=== PATIENT | female | born 1950 ===

== ENCOUNTER 2017-06-21 18:10 | Observation (INO) | payer MEDICARE, MEDICAID ==
[2017-06-21 18:10] VITALS: BMI 31.9
[2017-06-21 18:21] VITALS: TEMP 97.5
--- NOTE | 2017-06-21 18:54 | ED PDOC ---
HPI: Chest Pain Time Seen by Provider: 06/21/17 18:22 Chief Complaint (Nursing): Chest Pain Chief Complaint (Provider): Chest Pain History Per: Patient History/Exam Limitations: no limitations Onset/Duration Of Symptoms: Days (x3), Intermittent Episodes Associated Symptoms: Diaphoresis, Other (Shortness of Breath) Additional Complaint(s): Magaly Mccarty is a 67 year old female, with a past medical history of hypertension and hypercholesterolemia, who presents to the emergency department complaining of chest pain radiating to her left shoulder and arm associated with episodes of sweating, shortness of breath, and bilateral lower leg swelling onset for 3 days. She denies any fever, cough, and lightheadedness. Patient reports there is no air conditioner at home but uses 2 fans and lives on the 1st floor, yet she doesn't feel hot. PMD: Reilly Barney Past Medical History Reviewed: Historical Data, Nursing Documentation, Vital Signs Vital Signs: Last Vital Signs Temp 97.5 F L 06/21/17 18:17 Pulse 65 06/21/17 20:17 Resp 18 06/21/17 18:17 BP 122/76 06/21/17 18:17 Pulse Ox 99 06/21/17 19:27 - Medical History PMH: Anxiety, Arthritis, Asthma, COPD, Depression, Gastritis, HTN, Hypercholesterolemia, Sleep Apnea Denies: HIV, Chronic Kidney Disease - Surgical History Surgical History: Cholecystectomy, Hernia Repair Other surgeries: hysterectomy. 4 left eye surgeries for glaucoma - Family History Family History: States: Unknown Family Hx - Social History Current smoker - smoking cessation education provided: No (>10yrs) Alcohol: None Drugs: Denies - Home Medications Home Medications: Ambulatory Orders Medication Instructions Recorded Albuterol HFA [Ventolin HFA 90 2 puff INH Q6 PRN 08/14/16 mcg/actuation (8 g)] Diclofenac Sodium [Voltaren] 50 mg PO Q8 PRN 08/14/16 Fluticasone/Salmeterol 250/50 2 puff INH BID 08/14/16 [Advair Diskus 250/50] Omeprazole 20 mg PO DAILY 08/14/16 Sertraline [Zoloft] 50 mg PO DAILY 08/14/16 Simvastatin 20 mg PO DAILY 08/14/16 hydroCHLOROthiazide [Hydrodiuril] 25 mg PO DAILY 08/14/16 - Allergies Allergies/Adverse Reactions: Allergies Allergy/AdvReac Type Severity Reaction Status Date / Time No Known Allergies Allergy Verified 10/18/14 14:53 Review of Systems ROS Statement: Except As Marked, All Systems Reviewed And Found Negative Constitutional: Positive for: Sweats. Negative for: Fever Cardiovascular: Positive for: Chest Pain (intermittent bilateral, radiating to left shoulder and arm), Other (bilateral lower leg swelling ). Negative for: Light Headedness Respiratory: Positive for: Shortness of Breath. Negative for: Cough Physical Exam - Reviewed Nursing Documentation Reviewed: Yes Vital Signs Reviewed: Yes - Physical Exam Appears: Positive for: Non-toxic, In Acute Distress Head Exam: Positive for: ATRAUMATIC, NORMOCEPHALIC Skin: Positive for: Warm, Dry Eye Exam: Positive for: EOMI, PERRL ENT: Negative for: Pharyngeal Erythema, Tonsillar Exudate Neck: Positive for: Painless ROM, Supple Cardiovascular/Chest: Positive for: Regular Rate, Rhythm, Chest Non Tender, Edema (trace bilateral lower leg). Negative for: Murmur Respiratory: Positive for: Normal Breath Sounds. Negative for: Accessory Muscle Use, Wheezing, Respiratory Distress Gastrointestinal/Abdominal: Positive for: Soft. Negative for: Tenderness Back: Positive for: Normal Inspection. Negative for: Vertebral Tenderness Extremity: Positive for: Normal ROM. Negative for: Calf Tenderness, Deformity Lymphatic: Negative for: Adenopathy Neurologic/Psych: Positive for: Alert, Motor/Sensory Deficits - Laboratory Results Result Diagrams: 06/21/17 19:56 06/21/17 19:56 - ECG ECG: Positive for: Interpreted By Me ECG Rhythm: Positive for: Normal QRS, Normal ST Segment, Sinus Rhythm O2 Sat by Pulse Oximetry: 99 Pulse Ox Interpretation: Normal - Radiology X-Ray: Read By Radiologist X-Ray Interpretation: No Acute Disease - Progress ED Course And Treament: Accession No. : [id number] Patient Name / ID : YAEL JESUS / [id number] Exam Date : 06/21/2017 18:36:35 ( Approved ) Study Comment : Sex / Age : F / 67Y Creator : Reynaldo Leija MD Dictator : Reynaldo Leija MD Chronograph Operator : Tub Rider : Reynaldo Leija MD Approver2 : Report Date : 06/21/2017 18:52:00 My Comment : HISTORY: chest pain COMPARISON: 07/15/2016 TECHNIQUE: Chest PA and lateral FINDINGS: LUNGS: Hyperinflation, manifestations of COPD. No active pulmonary disease. PLEURA: No significant pleural effusion identified. No pneumothorax apparent. CARDIOVASCULAR: No radiographic findings to suggest acute or significant cardiovascular disease. OSSEOUS STRUCTURES: No significant abnormalities. VISUALIZED UPPER ABDOMEN: Normal. OTHER FINDINGS: None. IMPRESSION: No active disease. No significant interval change compared to the prior examination(s). Medical Decision Making Medical Decision Making: Initial Impression: Chest Pain differential include but not limited to acute coronary syndrome, angina, CHF, PE, dehydration Initial Plan: --Type and Screen --EKG --B-type Natriuretic --Comp Metabolic Panel --Troponin I --Urine Dipstick --EKG --CBC w/ differential --D-dimer [Coag] --PTT --PT --Chest two views (PA/LAT) [RAD] --reevaluation Patient will be hospitalized pending ED workup to rule out ACS Time: 19:15 FINDINGS: LUNGS: Hyperinflation, manifestations of COPD. No active pulmonary disease. PLEURA: No significant pleural effusion identified. No pneumothorax apparent. CARDIOVASCULAR: No radiographic findings to suggest acute or significant cardiovascular disease. OSSEOUS STRUCTURES: No significant abnormalities. VISUALIZED UPPER ABDOMEN: Normal. OTHER FINDINGS: None. IMPRESSION: No active disease. No significant interval change compared to the prior examination(s). Labs unremarkable. Scribe Attestation: Documented by Ben Edmond, acting as a scribe for Marjorie Schuler MD. Provider Scribe Attestation: All medical record entries made by the Scribe were at my direction and personally dictated by me. I have reviewed the chart and agree that the record accurately reflects my personal performance of the history, physical exam, medical decision making, and the department course for this patient. I have also personally directed, reviewed, and agree with the discharge instructions and disposition. Disposition - Clinical Impression Clinical Impression: Chest pain Discussed With : Josh Lozada Doctor Will See Patient In The: ED Counseled Patient/Family Regarding: Studies Performed, Diagnosis - Disposition Disposition Time: 20:00 Condition: SERIOUS Forms: [facility] (Hebrew) - Pt Status Changed To: Hospital Disposition Of: Observation - POA Present On Arrival: None
[2017-06-21 20:04] LABS: BASO # 0.1 K/uL (0.0-0.2); BASO % 0.9 % (0.0-2.0); EOS # 0.2 K/uL (0.0-0.7); EOS % 2.2 % (0.0-4.0); HEMATOCRIT 43.3 % (34.0-47.0); LYMPH # 1.1 K/uL (1.0-4.3); LYMPH % 14.8 % (20.0-40.0); MEAN CELL VOLUME 95.2 fl (81.0-99.0); MEAN CORPUSCULAR HGB CONC 32.6 g/dL (33.0-37.0); MEAN PLATELET VOLUME 9.2 fl (7.2-11.7); MONO # 0.6 K/uL (0.0-0.8); MONO % 8.4 % (0.0-10.0); NEUT # 5.4 K/uL (1.8-7.0); NEUT % 73.7 % (50.0-75.0); RED CELL DISTRIBUTION WIDTH 14.3 % (11.5-14.5); WHITE BLOOD COUNT 7.4 K/uL (4.8-10.8)
[2017-06-21 20:22] LABS: PARTIAL THROMBOPLASTIN TIME 31.8 Seconds (25.6-37.1)
[2017-06-21 20:25] LABS: ALB/GLOB RATIO 1.5 (1.0-2.1); BILIRUBIN,TOTAL 1.1 mg/dl (0.2-1.3); CALCIUM 9.5 mg/dL (8.4-10.2); TOTAL PROTEIN 7.6 G/DL (6.3-8.2)
[2017-06-21 20:36] LABS: TROPONIN I 0.017 ng/mL (0.00-0.120)
[2017-06-21 20:38] LABS: POTASSIUM 4.1 MMOL/L (3.6-5.0)
--- NOTE | 2017-06-21 22:11 | CP.PCM.HP ---
History of Present Illness - History of Present Illness History of Present Illness: 67 y/o F with PMH including HTN, HLD, Mild persistent asthma, Depression and Anxiety presents to ED with a 3 day history of chest pain. Patient reports pain is retrosternal, radiating into the left upper extremity. Pain was gradual in onset, "squeezing" and "cramping" in nature, constant and ranging from 3-6/10 intensity. She reports associated diaphoresis and "nervous" feeling. Pain has been aggravated by movement and not aggravated by deep inspiration or exertion. No alleviating factors are noted. Patient denies fevers, chills, sob, wheezing, cough, abdominal pain, nausea, vomiting or recent social stressors. As per her baseline, patient is able to walk 10-12 blocks without exertional chest pain or dyspnea. She has occasional exercised induced asthma for which she uses ventolin as needed. She is a former 45 year smoker but quit 10 years ago. PMD: Dr Maciel, [facility] Present on Admission - Present on Admission Any Indicators Present on Admission: No History of DVT/PE: No History of Uncontrolled Diabetes: No Urinary Catheter: No Decubitus Ulcer Present: No Review of Systems - Constitutional Constitutional: Weight Loss. absent: Chills, Fever - Cardiovascular Cardiovascular: Chest Pain. absent: Dyspnea on Exertion, Palpitations, Pedal Edema - Respiratory Respiratory: absent: Cough, Wheezing - Gastrointestinal Gastrointestinal: absent: Abdominal Pain, Diarrhea, Nausea, Vomiting - Psychiatric Psychiatric: absent: Anxiety, Depression, Homicidal Ideation Past Patient History - Past Medical History & Family History Past Medical History?: Yes - Past Social History Smoking Status: Former Smoker (45 year smoking history. Quit 10 years ago.) Alcohol: None Drugs: Denies Home Situation {Lives}: Alone - CARDIAC Hx Hypercholesterolemia: Yes Hx Hypertension: Yes - PULMONARY Hx Asthma: Yes Hx Chronic Obstructive Pulmonary Disease (COPD): Yes Hx Sleep Apnea: Yes - NEUROLOGICAL Hx Neurological Disorder: No - HEENT Hx HEENT Problems: No - ENDOCRINE/METABOLIC Hx Endocrine Disorders: No - HEMATOLOGICAL/ONCOLOGICAL Hx Human Immunodeficiency Virus (HIV): No - INTEGUMENTARY Hx Dermatological Problems: No - MUSCULOSKELETAL/RHEUMATOLOGICAL Hx Arthritis: Yes - GASTROINTESTINAL Hx Gastritis: Yes - GENITOURINARY/GYNECOLOGICAL Hx Genitourinary Disorders: No - PSYCHIATRIC Hx Anxiety: Yes Hx Depression: Yes - SURGICAL HISTORY Hx Cholecystectomy: Yes - ANESTHESIA Hx Anesthesia: Yes Hx Anesthesia Reactions: No Hx Malignant Hyperthermia: No Meds Allergies/Adverse Reactions: Allergies Allergy/AdvReac Type Severity Reaction Status Date / Time No Known Allergies Allergy Verified 10/18/14 14:53 Physical Exam - Constitutional Appears: Non-toxic, No Acute Distress - Head Exam Head Exam: ATRAUMATIC, NORMAL INSPECTION, NORMOCEPHALIC - Eye Exam Eye Exam: EOMI Additional comments: Right pupil reactive to light. Blind in left eye. Left eye pupil fixed s/p ophthalmologic surgery for glaucoma. - ENT Exam ENT Exam: Mucous Membranes Moist - Neck Exam Neck exam: Negative for: Tenderness, Thyromegaly - Respiratory Exam Respiratory Exam: Clear to Auscultation Bilateral, NORMAL BREATHING PATTERN. absent: Rhonchi, Wheezes, Respiratory Distress - Cardiovascular Exam Cardiovascular Exam: REGULAR RHYTHM, RRR, +S1, +S2. absent: Systolic Murmur - GI/Abdominal Exam GI & Abdominal Exam: Normal Bowel Sounds, Soft. absent: Distended, Guarding, Rebound, Tenderness - Extremities Exam Extremities exam: Positive for: normal capillary refill. Negative for: calf tenderness, pedal edema - Neurological Exam Neurological exam: Alert, Oriented x3 - Psychiatric Exam Psychiatric exam: Normal Affect, Normal Mood Additional comments: Denies depressed mood or anxiety currently. - Skin Skin Exam: Dry, Normal Color, Warm Additional comments: No diaphoresis. Results - Vital Signs Recent Vital Signs: Last Vital Signs Temp 97.5 F L 06/21/17 18:17 Pulse 65 06/21/17 20:17 Resp 18 06/21/17 18:17 BP 122/76 06/21/17 18:17 Pulse Ox 99 06/21/17 20:54 - Labs Result Diagrams: 06/21/17 19:56 06/21/17 19:56 Assessment & Plan - Assessment and Plan (Free Text) Assessment: 67 y/o F with PMH including HTN, HLD, Mild persistent asthma, Depression and Anxiety presented to ED with a 3 day history of retrosternal chest pain. Patient admitted for observation to rule out ACS. Plan: Acute chest pain -In the context of HTN, HLD, Obesity and new onset chest pain, will need to R/O ACS -EKG performed in ED does not detect any acute ischemic changes -Troponin negative x1. Follow serial troponins -ProBNP wnl at 109 -CXR does not detect any acute pulmonary processes -TSH ordered -ASA administered in ED -O2 via NC prn -Admit to telemetry for cardiac monitoring -EKG in AM Hypertension -Well controlled -Continue HCT 25mg PO daily Hyperlipidemia -Last lipid panel from 08/14/16: Total chol: 143, LDL: 71, HDL: 41 -Will repeat lipid panel -Continue simvastatin 20mg PO QHS Mild persistent asthma -Well controlled, no acute exacerbation -Continue advair 250/50 INH BID -Singulair 10mg PO daily -Albuterol PRN Depression/Anxiety -Well controlled -Patient denies any current depressed mood -Continue Sertraline 50mg PO daily Obesity -BMI 32.9 DVT Prophylaxis -Lovenox 40mg SC daily
[2017-06-21] MEDS ORDERED: Albuterol HFA 90 mcg/actuation (8 g) INH PRN (22:29)
[2017-06-21 23:47] VITALS: RESP 16; O2SAT 97
[2017-06-22 06:39] VITALS: BP 115/78; PULSE 74
[2017-06-22 06:58] LABS: THYROID STIMULATING HORMONE 1.37 mIU/ML (0.46-4.68)
[2017-06-22] MEDS ORDERED: Enoxaparin 40 mg Syringe SC SCH (09:00)
[2017-06-22] MEDS ORDERED: Fluticasone-Salmeterol 250-50mcg Diskus INH SCH (09:00)
--- NOTE | 2017-06-22 15:51 | CP.PCM.DIS ---
Provider - Provider Date of Admission: 06/21/17 20:45 Attending physician: Heydi Adams MD Time Spent in preparation of Discharge (in minutes): 30 Diagnosis - Discharge Diagnosis (1) Chest pain Status: Resolved Hospital Course - Lab Results Lab Results: Most Recent Lab Values WBC 7.4 K/uL (4.8-10.8) 06/21/17 19:56 RBC 4.55 Mil/uL (3.80-5.20) 06/21/17 19:56 Hgb 14.1 g/dL (12.0-16.0) 06/21/17 19:56 Hct 43.3 % (34.0-47.0) 06/21/17 19:56 MCV 95.2 fl (81.0-99.0) 06/21/17 19:56 MCH 31.0 pg (27.0-31.0) 06/21/17 19:56 MCHC 32.6 g/dL (33.0-37.0) L 06/21/17 19:56 RDW 14.3 % (11.5-14.5) 06/21/17 19:56 Plt Count 339 K/uL (130-400) 06/21/17 19:56 MPV 9.2 fl (7.2-11.7) 06/21/17 19:56 Neut % (Auto) 73.7 % (50.0-75.0) 06/21/17 19:56 Lymph % (Auto) 14.8 % (20.0-40.0) L 06/21/17 19:56 Dickens % (Auto) 8.4 % (0.0-10.0) 06/21/17 19:56 Eos % (Auto) 2.2 % (0.0-4.0) 06/21/17 19:56 Baso % (Auto) 0.9 % (0.0-2.0) 06/21/17 19:56 Neut # 5.4 K/uL (1.8-7.0) 06/21/17 19:56 Lymph # 1.1 K/uL (1.0-4.3) 06/21/17 19:56 Dickens # 0.6 K/uL (0.0-0.8) 06/21/17 19:56 Eos # 0.2 K/uL (0.0-0.7) 06/21/17 19:56 Baso # 0.1 K/uL (0.0-0.2) 06/21/17 19:56 PT 12.9 Seconds (9.8-13.1) 06/21/17 19:56 INR 1.3 (0.9-1.2) H 06/21/17 19:56 APTT 31.8 Seconds (25.6-37.1) 06/21/17 19:56 D-Dimer, Quantitative 139 ng/mlDDU (0-230) 06/21/17 19:56 Sodium 140 mmol/l (132-148) 06/21/17 19:56 Potassium 4.1 MMOL/L (3.6-5.0) 06/21/17 19:56 Chloride 102 mmol/L (98-107) 06/21/17 19:56 Carbon Dioxide 27 mmol/L (22-30) 06/21/17 19:56 Anion Gap 15 (10-20) 06/21/17 19:56 BUN 25 mg/dl (7-17) H 06/21/17 19:56 Creatinine 1.1 mg/dL (0.7-1.2) 06/21/17 19:56 Est GFR ( Amer) 60 06/21/17 19:56 Est GFR (Non-Af Amer) 49 06/21/17 19:56 Random Glucose 117 mg/dL (65-105) H 06/21/17 19:56 Calcium 9.5 mg/dL (8.4-10.2) 06/21/17 19:56 Total Bilirubin 1.1 mg/dl (0.2-1.3) 06/21/17 19:56 AST 49 U/L (14-36) H 06/21/17 19:56 ALT 41 U/L (9-52) 06/21/17 19:56 Alkaline Phosphatase 97 U/L (38-126) 06/21/17 19:56 Troponin I < 0.0120 ng/mL (0.00-0.120) 06/22/17 06:00 NT-Pro-B Natriuret Pep 109 pg/ml (0-900) 06/21/17 19:56 Total Protein 7.6 G/DL (6.3-8.2) 06/21/17 19:56 Albumin 4.6 g/dL (3.5-5.0) 06/21/17 19:56 Globulin 3.0 gm/dL (2.2-3.9) 06/21/17 19:56 Albumin/Globulin Ratio 1.5 (1.0-2.1) 06/21/17 19:56 Triglycerides 106 mg/DL (0-149) D 06/22/17 06:10 Cholesterol 142 mg/dL (0-199) 06/22/17 06:10 LDL Cholesterol Direct 84 mg/dL (0-129) 06/22/17 06:10 HDL Cholesterol 36 MG/DL (30-70) 06/22/17 06:10 TSH 3rd Generation 1.37 mIU/ML (0.46-4.68) 06/22/17 06:10 Blood Type A POSITIVE 06/21/17 19:50 Antibody Screen Negative 06/21/17 19:50 BBK History Checked No verified bt 06/21/17 19:50 - Hospital Course Hospital Course: Discharge Diagnoses: Chest Pain Consultations: None Procedures: None Complications: None Hospital Course: Pt is 67 yo female with Hx of HTN, HLD, Moderate persistent asthma, Depression, and DVT who was admitted for chest pain associated with anxiety, diaphoresis, and palpatations. Patient states that she has been experiencing this episodes for the past year. Her CP resolved shortly after arriving to the ED. EKG, Serial Troponins, TSH was negative. On d/c patient did not have any complaints. Medication at discharge: Albuterol (Ventolin Hfa 90mcg/Actuation (8g) Atorvastatin 10mg HTZ 25mg Montelukast 10mg Fluticasone/ Salmeterol BID Sertraline 100mg Aspirin 81mg Diclofenac 50mg Omeprazole 20 mg Discharge plan: Condition upon discharge: Stable Activity: Ambulating without assistance Diet:Regular Date of Next Appt: July 09 at [facility], pt is aware Issues to be addressed at follow up: Possible Stress Test, Anxiety/ Depression Management Discharge Exam - Head Exam Head Exam: ATRAUMATIC, NORMAL INSPECTION, NORMOCEPHALIC - Eye Exam Eye Exam: Normal appearance - Respiratory Exam Respiratory Exam: Clear to PA & Lateral. absent: Rales, Respiratory Distress, Stridor - Cardiovascular Exam Cardiovascular Exam: REGULAR RHYTHM, +S1, +S2. absent: Systolic Murmur - Neurological Exam Neurological exam: Alert, Altered, Oriented x3 Discharge Plan - Discharge Medications Prescriptions: Sertraline HCl 100 mg PO DAILY #30 tablet - Follow Up Plan Condition: STABLE Disposition: HOME/ ROUTINE
--- NOTE | 2017-06-22 17:41 | CARD ---
APPROVED REPORT EKG Measurement Heart [id number] <Conclusion> Sinus rhythm with 1st degree AV block Otherwise normal ECG
--- NOTE | 2017-06-22 17:45 | CARD ---
APPROVED REPORT EKG Measurement Heart [id number] <Conclusion> Normal sinus rhythm Normal ECG
== END 2017-06-22 14:10 | disposition home or self-care (01) ==
LOC: H.ER 18:10 → H.ERHOLD 20:45
PROVIDERS: ADMIT Family Medicine Geriatric Medicine; ATTEND Family Medicine Geriatric Medicine
DX: R07.9 Chest pain, unspecified (principal); E78.00 Pure hypercholesterolemia, unspecified; E78.5 Hyperlipidemia, unspecified; G47.30 Sleep apnea, unspecified; I10 Essential (primary) hypertension; J44.9 Chronic obstructive pulmonary disease, unspecified; J45.40 Moderate persistent asthma, uncomplicated; Z87.891 Personal history of nicotine dependence; Z90.49 Acquired absence of other specified parts of digestive tract; F32.9 Major depressive disorder, single episode, unspecified; F41.9 Anxiety disorder, unspecified; K29.70 Gastritis, unspecified, without bleeding; M19.90 Unspecified osteoarthritis, unspecified site; R61 Generalized hyperhidrosis
CPT/HCPCS: 71020; 80053; 80061; 83880; 84443; 84484; 85025; 85378; 85610; 85730; 86850; 86900; 93005; 96372; 99284; G0378; J1650

== ENCOUNTER 2019-02-25 11:41 | Emergency (ER) | payer MEDICARE, MEDICAID ==
[2019-02-25 11:49] VITALS: TEMP 97.7
[2019-02-25 11:50] VITALS: BMI 37.8
--- NOTE | 2019-02-25 12:18 | ED PDOC ---
HPI: Headache Time Seen by Provider: 02/25/19 11:52 Chief Complaint (Nursing): Headache Chief Complaint (Provider): Headache History Per: Patient, Director Medical Economics (Lacie Baez # [id number]) History/Exam Limitations: language barrier Onset/Duration Of Symptoms: Days (x3) Current Symptoms Are (Timing): Still Present Additional Complaint(s): Patient is a 68 y/o female with an extensive PMHx who presents to the ED for evaluation of a headache for the past three days. Patient claims the pain radiates down the left-side of her neck to her left shoulder, down her left arm and left leg. Patient also reports chest pain which she describes as "like a cramp." Patient states she has been taking Tylenol with minimal relief. Patient denies shortness of breath, weakness, numbness, and radiation down to her fingertips. Of note, patient has been staying up to date with her medication including Timilol, Zylox, and Aspirin. PCP: Dr. Reilly Barney NIHSS Stroke Scale - Date/Time Evaluation Performed Date Performed: 02/25/19 Time Performed: 12:10 When Was NIHSS Performed: Baseline - How Severe is the Stroke Level of Consciousness: 0=Alert LOC to Questions: 0=Both comments correct LOC to commands: 0=Obeys both correctly Best Gaze: 0=Normal Visual: 0=No visual loss Facial: 0=Normal Motor Arm - Left: 0=No drift Motor Arm - Right: 0=No drift Motor Leg - Left: 0=No drift Motor Leg - Right: 0=No drift Limb Ataxia: 0=Absent Sensory: 0=Normal Best Language: 0=No aphasia Dysarthia: 0=Normal articulation Extinction & Inattention (Neglect): 0=Normal, no object Score: 0 Past Medical History Reviewed: Historical Data, Nursing Documentation, Vital Signs Vital Signs: Last Vital Signs Temp 97.7 F 02/25/19 11:49 Pulse 61 02/25/19 11:49 Resp 18 02/25/19 11:49 BP 164/97 H 02/25/19 11:49 Pulse Ox 97 02/25/19 11:49 - Medical History PMH: Anxiety, Arthritis, Asthma, COPD, Depression, Gastritis, HTN, Hypercholesterolemia, Sleep Apnea Denies: HIV, Chronic Kidney Disease - Surgical History Surgical History: Cholecystectomy, Hernia Repair - Family History Family History: States: Unknown Family Hx - Home Medications Home Medications: Ambulatory Orders Medication Instructions Recorded Albuterol HFA [Ventolin HFA 90 2 puff INH Q6 PRN 08/14/16 mcg/actuation (8 g)] Diclofenac Sodium [Voltaren] 50 mg PO Q8 PRN 08/14/16 Fluticasone/Salmeterol 250/50 2 puff INH BID 08/14/16 [Advair Diskus 250/50] Omeprazole 20 mg PO DAILY 08/14/16 Simvastatin 20 mg PO HS 08/14/16 hydroCHLOROthiazide [Hydrodiuril] 25 mg PO DAILY 08/14/16 Montelukast [Singulair] 10 mg PO HS 06/21/17 Sertraline HCl 100 mg PO DAILY #30 tablet 06/22/17 Ibuprofen [Motrin] 600 mg PO TID 7 Days tab 02/25/19 - Allergies Allergies/Adverse Reactions: Allergies Allergy/AdvReac Type Severity Reaction Status Date / Time No Known Allergies Allergy Verified 10/18/14 14:53 Review of Systems ROS Statement: Except As Marked, All Systems Reviewed And Found Negative Cardiovascular: Positive for: Chest Pain Respiratory: Negative for: Shortness of Breath Musculoskeletal: Positive for: Neck Pain (left-sided), Shoulder Pain (left), Arm Pain (left; without raidation to fingertips), Leg Pain (left) Neurological: Positive for: Headache. Negative for: Weakness, Numbness Physical Exam - Reviewed Nursing Documentation Reviewed: Yes Vital Signs Reviewed: Yes - Physical Exam Appears: Positive for: No Acute Distress Head Exam: Positive for: ATRAUMATIC, NORMAL INSPECTION, NORMOCEPHALIC Skin: Positive for: Normal Color, Warm, DRY Eye Exam: Positive for: EOMI, Normal appearance, PERRL ENT: Positive for: Normal ENT Inspection Neck: Positive for: Normal (with tenderness to left-side), Painless ROM, Supple Cardiovascular/Chest: Positive for: Regular Rate, Rhythm. Negative for: Murmur Respiratory: Positive for: Normal Breath Sounds. Negative for: Respiratory Distress Back: Positive for: Normal Inspection. 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 Negative for: Pedal Edema, Deformity Neurological/Psych: Positive for: Alert, Oriented (x3), Gait (steady), Other (sensation to touch intact) - Laboratory Results Result Diagrams: 02/25/19 13:30 02/25/19 13:30 - ECG O2 Sat by Pulse Oximetry: 97 (RA) Pulse Ox Interpretation: Normal Medical Decision Making Medical Decision Making: Time: 1209 Impression: Headache and Left Sided Pain Plan: CT Head w/o Contrast EKG CMP Troponin I Urine Dipstick CBC PTT Prothrombin Time CXR UA Time: 1305 CT Head FINDINGS: HEMORRHAGE: No intracranial hemorrhage. BRAIN: Good corticomedullary differentiation is seen. There is minimal periventricular white matter lucency compatible with diffuse cerebral atrophy and chronic mi croangiopathy. No suspicious extra-axial fluid collection is identified and the midline brain anatomy appears grossly nonfocal as imaged. There is no mass effect throughout. VENTRICLES: Unremarkable. No hydrocephalus. CALVARIUM: Unremarkable. PARANASAL SINUSES: Unremarkable as visualized. No significant inflammatory changes. MASTOID AIR CELLS: Unremarkable as visualized. No inflammatory changes. 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 IMPRESSION: Stable minimal age related neuro degenerative changes comprised of only minimal chronic microangiopathy. Exam otherwise unremarkable throughout the intracranial space. Incidental interval left ophthalmological postoperative changes identified. Scribe Attestation: Documented by Td Casey, acting as a scribe Rigo Ronquillo MD. Provider Scribe Attestation: All medical record entries made by the Scribe were at my direction and personally dictated by me. I have reviewed the chart and agree that the record accurately reflects my personal performance of the history, physical exam, medical decision making, and the department course for this patient. I have also personally directed, reviewed, and agree with the discharge instructions and disposition. Disposition - Clinical Impression Clinical Impression: Lung nodules, Aortic aneurysm, Pain - Disposition Referrals: [facility] [Outside] - 02/26/19 Chet Garay [Medical Doctor] - 02/26/19 Disposition: Transfer of Care Disposition Time: 15:00 Condition: STABLE Additional Instructions: Return if not better in 3 days. See the primary care doctor without fail for evaluation of your aortic aneurysm and lung nodules. Prescriptions: Ibuprofen [Motrin] 600 mg PO TID 7 Days tab Instructions: Thoracic Aortic Aneurysm, Acute Pain, Adult, Multiple Pulmonary Nodules Forms: [employer] (Armenian) Print Language: ROMANSH Patient Signed Over To: Darion Pop
--- NOTE | 2019-02-25 13:08 | CT ---
Date of service: 02/25/2019 PROCEDURE: CT HEAD WITHOUT CONTRAST. HISTORY: L sided PAZ COMPARISON: Unenhanced head CT 08/13/2016. TECHNIQUE: Axial computed tomography images were obtained through the head/brain without intravenous contrast. Radiation dose: Total exam DLP = 798.89 mGy-cm. This CT exam was performed using one or more of the following dose reduction techniques: Automated exposure control, adjustment of the mA and/or kV according to patient size, and/or use of iterative reconstruction technique. FINDINGS: HEMORRHAGE: No intracranial hemorrhage. BRAIN: Good corticomedullary differentiation is seen. There is minimal periventricular white matter lucency compatible with diffuse cerebral atrophy and chronic microangiopathy. No suspicious extra-axial fluid collection is identified and the midline brain anatomy appears grossly nonfocal as imaged. There is no mass effect throughout. VENTRICLES: Unremarkable. No hydrocephalus. CALVARIUM: Unremarkable. PARANASAL SINUSES: Unremarkable as visualized. No significant inflammatory changes. MASTOID AIR CELLS: Unremarkable as visualized. No inflammatory changes. OTHER FINDINGS: Incidental interval left scleral medical records secretary in situ as well as additional device presumed cephalad to the lens in this patient who is status post prior cataract surgery. IMPRESSION: Stable minimal age related neuro degenerative changes comprised of only minimal chronic microangiopathy. Exam otherwise unremarkable throughout the intracranial space. Incidental interval left ophthalmological postoperative changes identified.
[2019-02-25 13:29] VITALS: RESP 16
[2019-02-25 13:32] LABS: EOS # 0.1 K/uL (0.0-0.7); EOS % 2.9 % (0.0-4.0); HEMOGLOBIN 14.3 g/dL (12.0-16.0); LYMPH # 1.3 K/uL (1.0-4.3); MEAN PLATELET VOLUME 9.6 fl (7.2-11.7); MONO # 0.4 K/uL (0.0-0.8); NEUT # 2.7 K/uL (1.8-7.0); NEUT % 59.1 % (50.0-75.0); RBC 4.48 Mil/uL (3.80-5.20); RED CELL DISTRIBUTION WIDTH 14.4 % (11.5-14.5); WHITE BLOOD COUNT 4.5 K/uL (4.8-10.8)
[2019-02-25 13:37] LABS: INR 1.1; PROTHROMBIN TIME 12.8 Seconds (9.8-13.1)
[2019-02-25 13:40] LABS: PARTIAL THROMBOPLASTIN TIME 36.3 Seconds (25.6-37.1)
[2019-02-25 13:41] LABS: BLOOD UREA NITROGEN 15 mg/dl (7-17); CALCIUM 9.3 mg/dL (8.4-10.2); GFR NON-AFRICAN AMERICAN > 60
[2019-02-25 13:43] LABS: ALB/GLOB RATIO 1.2 (1.0-2.1); ALBUMIN 4.5 g/dL (3.5-5.0); ALT/SGPT 45 U/L (9-52); AST/SGOT 87 U/L (14-36)
[2019-02-25 13:47] LABS: SQUAMOUS EPITHIAL 3 /hpf (0-5); URINE BILIRUBIN NEGATIVE (NEGATIVE); URINE BLOOD NEGATIVE (NEGATIVE); URINE CLARITY CLEAR (Clear); URINE COLOR YELLOW (YELLOW); URINE GLUCOSE (UA) NEG (NEGATIVE); URINE LEUKOCYTE ESTERASE NEG Leu/uL (Negative); URINE PROTEIN NEGATIVE (NEGATIVE); URINE UROBILINOGEN 0.2-1.0 mg/dL (0.2-1.0)
--- NOTE | 2019-02-25 14:38 | RAD ---
HISTORY: CP COMPARISON: Chest x-ray performed 06/21/17 TECHNIQUE: Chest, one view. FINDINGS: Examination limited by habitus. LUNGS: No focal consolidation. Please note that chest x-ray has limited sensitivity for the detection of pulmonary masses. PLEURA: No significant pleural effusion identified. No definite pneumothorax . CARDIOVASCULAR: Heart size appears top normal. Aortic ectasia. Question possibility of adenopathy due to abnormal contour of the mediastinum. OSSEOUS STRUCTURES: Degenerative changes. VISUALIZED UPPER ABDOMEN: Unremarkable. OTHER FINDINGS: None. IMPRESSION: No focal consolidation Abnormal contour of the mediastinum raises suspicion for adenopathy. CT of the chest with IV contrast suggested for further evaluation.
--- NOTE | 2019-02-25 15:29 | ED PDOC ---
- Laboratory Results Result Diagrams: 02/25/19 13:30 02/25/19 13:30 Lab Results: PT 12.8 Seconds (9.8-13.1) 02/25/19 13:30 INR 1.1 02/25/19 13:30 APTT 36.3 Seconds (25.6-37.1) 02/25/19 13:30 Troponin I < 0.0120 ng/mL (0.00-0.120) 02/25/19 13:30 Total Bilirubin 1.0 mg/dl (0.2-1.3) 02/25/19 13:30 AST 87 U/L (14-36) H 02/25/19 13:30 ALT 45 U/L (9-52) 02/25/19 13:30 Alkaline Phosphatase 93 U/L (38-126) 02/25/19 13:30 Total Protein 8.1 G/DL (6.3-8.2) 02/25/19 13:30 Albumin 4.5 g/dL (3.5-5.0) 02/25/19 13:30 Globulin 3.6 gm/dL (2.2-3.9) 02/25/19 13:30 Albumin/Globulin Ratio 1.2 (1.0-2.1) 02/25/19 13:30 Urine Color Yellow (YELLOW) 02/25/19 13:40 Urine Clarity Clear (Clear) 02/25/19 13:40 Urine pH 6.0 (5.0-8.0) 02/25/19 13:40 Ur Specific [place] 1.019 (1.003-1.030) 02/25/19 13:40 Urine Protein Negative mg/dL (NEGATIVE) 02/25/19 13:40 Urine Glucose (UA) Neg mg/dL (NEGATIVE) 02/25/19 13:40 Urine Ketones Negative mg/dL (NEGATIVE) 02/25/19 13:40 Urine Blood Negative (NEGATIVE) 02/25/19 13:40 Urine Nitrate Negative (NEGATIVE) 02/25/19 13:40 Urine Bilirubin Negative (NEGATIVE) 02/25/19 13:40 Urine Urobilinogen 0.2-1.0 mg/dL (0.2-1.0) 02/25/19 13:40 Ur Leukocyte Esterase Neg [place]/uL (Negative) 02/25/19 13:40 Urine RBC (Auto) 3 /hpf (0-3) 02/25/19 13:40 Urine Microscopic WBC < 1 /hpf (0-5) 02/25/19 13:40 Ur Squamous Epith Cells 3 /hpf (0-5) 02/25/19 13:40 Interpretation Of Abn Labs: no acute - ECG ECG: Positive for: Interpreted By Me, Viewed By Me ECG Rhythm: Positive for: Normal QRS, Normal ST Segment, Sinus Rhythm O2 Sat by Pulse Oximetry: 97 (RA) Pulse Ox Interpretation: Normal - Radiology X-Ray: Read By Radiologist X-Ray Interpretation: Mediastinum - CT Scan/US head Other Rad Studies (CT/US): Read By Radiologist Other Rad Interpretation: no acute ct Other Rad Studies (CT/US): Read By Radiologist Other Rad Interpretation: 4.3cm aneurysm; lung nodules - Progress ED Course And Treament: 1735: Stable. AAOx3. Pain free. Tolerated po. FU with pcp. Made aware of aneurysm and lung nodules. Fu with pcp. Spoke with Dr. GARAY. Made aware of presentation and findings. States nothing to do at this time. Fu with pcp and monitor. Medical Decision Making Medical Decision Makin Transfer of care endorsed from Dr. Ronquillo to this provider pending imaging and labs. Scribe Attestation: Documented by Venecia Canada, acting as a scribe for Darion Pop MD. Provider Scribe Attestation: All medical record entries made by the Scribe were at my direction and pers onally dictated by me. I have reviewed the chart and agree that the record accurately reflects my personal performance of the history, physical exam, medical decision making, and the department course for this patient. I have also personally directed, reviewed, and agree with the discharge instructions and disposition. Disposition Counseled Patient/Family Regarding: Studies Performed, Diagnosis, Need For Followup, Rx Given - Clinical Impression Clinical Impression: Lung nodules, Aortic aneurysm, Pain - POA Present On Arrival: None - Disposition Referrals: [facility] [Outside] - 02/26/19 Chet Garay [Medical Doctor] - 02/26/19 Disposition: Routine/Home Disposition Time: 17:39 Condition: STABLE Additional Instructions: Return if not better in 3 days. See the primary care doctor without fail for evaluation of your aortic aneurysm and lung nodules. Prescriptions: Ibuprofen [Motrin] 600 mg PO TID 7 Days tab Instructions: Thoracic Aortic Aneurysm, Acute Pain, Adult, Multiple Pulmonary Nodules Forms: [facility] (Togolese) Print Language: CAMBODIAN
[2019-02-25] MEDS ORDERED: Iohexol 300 100 ML IJ ONE (15:30)
[2019-02-25] MEDS ORDERED: Sodium Chloride 0.9% 50 ML IV ONE (15:30)
--- NOTE | 2019-02-25 17:30 | CT ---
Date of service: 02/25/2019 PROCEDURE: CT Chest with contrast HISTORY: Abnormal CXR COMPARISON: None available. TECHNIQUE: Contiguous axial images were obtained through the chest with intravenous contrast enhancement. Sagittal and coronal reconstructions were performed. IV contrast: Omnipaque 300, 90 cc. Radiation dose: Total exam DLP = 539.23 mGy-cm. This CT exam was performed using one or more of the following dose reduction techniques: Automated exposure control, adjustment of the mA and/or kV according to patient size, and/or use of iterative reconstruction technique. FINDINGS: LUNGS: No consolidation bilaterally. Central airways are clear. 3.4 mm potential partially calcified nodule seen the right apex in image 16 series 3 with the 3 mm triangular nodule similar appearance at the medial left apex. A 5 mm subpleural nodule is noncalcified at the left upper lobe posteriorly in image 28. MEDIASTINUM: A 4.3 cm sending thoracic aorta is appreciated representing a small and a mild aneurysm is normal caliber identified at the proximal arch. Normal aortic root caliber. Moderate proximal descending aortic ectasis. No additional abnormal dilatation. Normal sized heart. Main pulmonary artery unremarkable. No vascular congestion. No significant lymphadenopathy. Trace aortic atherosclerotic calcification identified. PLEURA: No pleural fluid. No pneumothorax. BONES: No fracture. No destructive lesion. UPPER ABDOMEN: Diffuse diminished attenuation is seen throughout the visualize liver with hepatomegaly suspected as well. Postoperative changes in the left upper quadrant abdomen the stomach mildly distended with retained food. Spleen upper limits normal size at 12.9 cm. No focal mass appreciable grossly. Surgical clip at splenic hilum. Right renal cyst. OTHER FINDINGS: None. IMPRESSION: 1. Ectatic aorta is felt to be the etiology of mediastinal left lateral convexity in frontal chest radiograph. Nevertheless, there is an ascending thoracic aortic aneurysm measuring up to 4.3 cm greatest transverse diameter normalizing by the anterior arch. No additional aneurysm is identified in the chest. 2. Three small biapical nodules are identified which are nonspecific and likely benign but partially calcified granulomata cannot be proven in this exam. Follow-up chest CT is advised in 12 months unless there is a high risk of lung cancer. Lung rads 2. 3. Incidental hepatic steatosis, and hepatomegaly. Borderline splenomegaly. Right renal cyst.
[2019-02-25 18:22] VITALS: BP 136/65; PULSE 62
--- NOTE | 2019-02-25 20:42 | CARD ---
APPROVED REPORT Date of service: 02/25/2019 EKG Measurement Heart [id number] <Conclusion> Sinus bradycardia Otherwise normal ECG
[2019-02-26 11:12] VITALS: O2SAT 97
== END 2019-02-25 18:20 | disposition home or self-care (01) ==
LOC: H.ER 11:41
DX: R91.8 Other nonspecific abnormal finding of lung field (principal); I71.2 Thoracic aortic aneurysm, without rupture; J44.9 Chronic obstructive pulmonary disease, unspecified; Z86.59 Personal history of other mental and behavioral disorders; I10 Essential (primary) hypertension
CPT/HCPCS: 70450; 71045; 71260; 80053; 81003; 84484; 85025; 85610; 85730; 93005; 99285; Q9967